=== PATIENT | female | born 2000 | race Caucasian/White ===

== ENCOUNTER → 2023-09-09 | Outpatient (CLI) | payer SELFPAY ==
[2023-09-09 07:42] LABS: Bedside Glucose 94 mg/dL (74-106)
[2023-09-09 08:19] LABS: Glucose 75GTT - Fasting 95 mg/dL (70-99)
[2023-09-09 08:27] LABS: T3 Total - Triiodothyronine 1.18 ng/mL (0.6-1.81)
[2023-09-09 08:32] LABS: Free T3 3.4 pg/mL (2.18-3.98); Prolactin 17.1 ng/mL; T4 Free Direct 1.01 ng/dL (0.76-1.46); Thyroid Stim Hormone (TSH) 1.39 uIU/mL (0.358-3.74)
[2023-09-09 08:32] LABS: Glucose 75GTT - 30 minutes 148 mg/dL (100-160)
[2023-09-09 08:49] LABS: Prolactin 12.3 ng/mL
[2023-09-09 09:27] LABS: Glucose 75GTT - 60 minutes 120 mg/dL (100-160)
[2023-09-09 09:49] LABS: Prolactin 9.5 ng/mL
[2023-09-09 10:44] LABS: Glucose 75GTT - 120 minutes 71 mg/dL (70-140)
[2023-09-10 19:55] LABS: INSULIN 120 MIN 43.9 uIU/mL (0.0-145.4); INSULIN FASTING 11.4 uIU/mL (2.6-24.9)
== END | disposition home or self-care (01) ==
PROVIDERS: PCP Physician Assistant; Referring Provider Obstetrics & Gynecology; Visit Provider Obstetrics & Gynecology
DX: Z13.1 Encounter for screening for diabetes mellitus (principal); E03.9 Hypothyroidism, unspecified; E28.9 Ovarian dysfunction, unspecified
CPT/HCPCS: 36415; 82951; 82952; 82962; 83525; 84146; 84439; 84443; 84480; 84481

== ENCOUNTER → 2024-07-14 | Outpatient (CLI) | payer OTHER, SELFPAY ==
[2024-07-19 22:51] LABS: HPV Reflexed? NOT INDICATED
== END | disposition home or self-care (01) ==
LOC: LABSPEC 16:50
PROVIDERS: PCP Physician Assistant; Referring Provider Advanced Practice Midwife; Visit Provider Advanced Practice Midwife
DX: Z00.00 Encounter for general adult medical examination without abnormal findings (principal)
CPT/HCPCS: 88175; G0145